=== PATIENT | female | born 1945 | race Caucasian/White ===

== ENCOUNTER 2016-08-26 17:24 | Emergency (ER) | payer MEDICARE, OTHER ==
--- NOTE | 2016-08-26 17:57 | ED Physician Documentation ---
General Adult - HISTORIAN Historian: patient - HPI Stated Complaint: weakness/confusion Chief Complaint: Weakness Timing: still present Severity: mild Further Comments: yes (70yo white female with 1 week history of the gait disturbance, is getting weaker, seems worse over the last month. More pale today. Patient has a history of anemia, is taking some Fe at this time. Has been having more swelling in her legs. Gets some better at noc. No orthopnic symtoms. No chest lima or pressure. Has been having some UTI symptoms.) - ROS CONST: denies: fever, chills EYES/ENT: none CVS/RESP: denies: chest pain, shortness of breath, cough GI/: problems urinating. denies: abdominal pain, vomiting, nausea, diarrhea, black stools - PAST HX Past History: COPD, hypertension, other (hypothyroidism, macular degeneration, ) Other History: other (breast cancer) Surgeries/Procedures: other (appendectomy, mastectomy, cataract extraction) - SOCIAL HX Smoking History: quit greater than 1 year (2 years ago) Alcohol Use: none Drug Use: none - FAMILY HX Family History: No - VITAL SIGNS Vital Signs: Vital Signs Temp Pulse Resp BP Pulse Ox 99.2 F 75 16 156/57 93 08/26/16 17:41 08/26/16 17:41 08/26/16 17:41 08/26/16 17:41 08/26/16 17:41 <Leighton Macdonald - Last Filed: 08/26/16 18:07> - VITAL SIGNS Vital Signs: Vital Signs Temp Pulse Resp BP Pulse Ox 99.2 F 75 16 156/57 93 08/26/16 17:41 08/26/16 17:41 08/26/16 17:41 08/26/16 17:41 08/26/16 17:41 <BREN ÁLVAREZ - Last Filed: 08/26/16 21:19> - PAST HX Allergies/Adverse Reactions: Allergies Allergy/AdvReac Type Severity Reaction Status Date / Time Penicillins Allergy Verified 09/18/13 08:31 Home Medications: Ambulatory Orders Medication Instructions Recorded Aspirin EC [Ecotrin] 81 mg PO QD 09/18/13 Ranitidine HCl [Zantac] 150 mg PO 0700 09/18/13 Citalopram Hydrobromide [Celexa] 40 mg PO QD 08/26/16 Cyclobenzaprine HCl [Flexeril] 5 mg PO TID PRN 08/26/16 Ferrous Sulfate [Feosol] 325 mg PO 08/26/16 Furosemide [Lasix] 40 mg PO DAILY 08/26/16 Gabapentin [Neurontin] 600 mg PO TID 08/26/16 Hydroxyzine HCl [Atarax] 10 mg PO PRN 08/26/16 Levofloxacin [Levaquin] 500 mg PO DAILY #4 tablet 08/26/16 Levothyroxine Sodium [Synthroid] 125 mcg PO QDAY 08/26/16 oxyCODONE HCL/ACETAMINOPHEN 1 PO Q12 08/26/16 [Percocet 5-325 mg Tablet] Progress - Progress Progress: 1930 Offered admission due to confusion. Patient adamantly does not want admission at [facility], patient wants to go home. Patient lives with her daughter, offered to direct admit if patient has difficulty at home. Will give IV levaquin in ER and continue for a total of 5 days. Daughter states patient got very confused when TSH was elevated a few weeks ago. Will send out thyroid panel. Reviewed discharge instructions with daughter, verbalized understanding. <BREN ÁLVAREZ - Last Filed: 08/26/16 21:19> ED Results Lab/Radiology - Lab Results Lab Results: Lab Results 08/26/16 08/26/16 08/26/16 18:40 18:40 18:40 WBC 6.00 K/ul K/ul (4.00-12.00) RBC 3.43 M/ul L M/ul (3.90-5.20) Hgb 10.7 g/dL L g/dL (12.0-16.0) Hct 33.6 % L % (34.5-46.5) MCV 97.7 fl fl (80.0-100.0) MCH 31.1 pg pg (28.0-34.0) MCHC 31.8 g/dL g/dL (30.0-36.0) RDW 14.4 % H % (11.3-14.3) Plt Count 367 K/mm3 K/mm3 (130-400) Neut % (Auto) 56.9 % % (39.0-79.0) Lymph % (Auto) 30.4 % % (16.0-50.0) [place] % (Auto) 5.7 % % (0.0-11.0) Eos % (Auto) 4.5 % % (0.0-6.8) Baso % (Auto) 0.5 (0.0-1.5) Neut # 3.4 # k/uL # k/uL (1.4-7.7) Lymph # 1.8 # k/uL # k/uL (0.6-4.0) [place] # 0.4 # k/uL # k/uL (0.0-0.9) Eos # 0.3 # k/uL # k/uL (0.0-0.6) Baso # 0.0 # k/uL # k/uL (0.0-0.5) Reactive Lymphs % 1.9 % % (0.0-5.0) Reactive Lymphs # 0.1 # k/uL # k/uL (0.0-0.8) Sodium 136 mmol/L mmol/L (136-145) Potassium 4.3 mmol/L mmol/L (3.5-5.0) Chloride 102 mmol/L mmol/L (98-110) Carbon Dioxide 31 mmol/L mmol/L (20-32) BUN 25 mg/dL mg/dL (10-26) Creatinine 1.1 mg/dL mg/dL (0.4-1.5) Estimated Creat Clear 92 Est GFR ( Amer) > 60 (60 - ) Est GFR (Non-Af Amer) > 60 (60 - ) Glucose 111 mg/dL H mg/dL (70-99) Calcium 9.4 mg/dL mg/dL (8.5-10.5) Total Bilirubin 0.2 mg/dL mg/dL (0.2-1.2) AST 17 U/L U/L (0-41) ALT 12 U/L U/L (0-45) Alkaline Phosphatase 76 U/L U/L (46-116) NT-Pro-B Natriuret Pep 409.0 pg/mL H pg/mL (15.0-125.0) Total Protein 7.4 g/dL g/dL (6.0-8.5) Urine Color Urine Appearance Urine pH Ur Specific [place] Urine Protein Urine Ketones Urine Occult Blood Urine Nitrite Urine Bilirubin Urine Urobilinogen Ur Leukocyte Esterase Urine RBC Urine WBC Urine WBC Clumps Amorphous Sediment Urine Bacteria Urine Glucose 08/26/16 18:30 WBC RBC Hgb Hct MCV MCH MCHC RDW Plt Count Neut % (Auto) Lymph % (Auto) [place] % (Auto) Eos % (Auto) Baso % (Auto) Neut # Lymph # [place] # Eos # Baso # Reactive Lymphs % Reactive Lymphs # Sodium Potassium Chloride Carbon Dioxide BUN Creatinine Estimated Creat Clear Est GFR ( Amer) Est GFR (Non-Af Amer) Glucose Calcium Total Bilirubin AST ALT Alkaline Phosphatase NT-Pro-B Natriuret Pep Total Protein Urine Color Yellow (YELLOW) Urine Appearance Slightly cloudy (CLEAR) Urine pH 5.5 (5.0 - 8.0) Ur Specific [place] 1.010 (1.010-1.030) Urine Protein 1+ mg/dL H mg/dL (NEGATIVE) Urine Ketones Negative mg/dL mg/dL (NEGATIVE) Urine Occult Blood 2+ H (NEGATIVE) Urine Nitrite Positive (NEGATIVE) Urine Bilirubin Negative (NEGATIVE) Urine Urobilinogen 0.2 Eu Eu (0.2-1.0) Ur Leukocyte Esterase 2+ H (NEGATIVE) Urine RBC 0-2 (0-2 HPF) Urine WBC 10-25 H (0-5 HPF) Urine WBC Clumps Present H (NEGATIVE) Amorphous Sediment Few H (NEGATIVE) Urine Bacteria Moderate H (NEGATIVE) Urine Glucose Negative mg/dL mg/dL (NEGATIVE) - Orders Orders: ED Orders Category Date Time Status In & Out Cath [Intermittent urinary catheteri] 1T Care 08/26/16 18:[address] Saline Lock/IV Now Care 08/26/16 18:11 Active CHEST 1 VIEW [RAD] Routine Exams 08/26/16 Taken BNP [NT-proBNP] Routine Lab 08/26/16 18:40 Completed CBC/PLATELET/DIFF Routine Lab 08/26/16 18:40 Completed CMP Routine Lab 08/26/16 18:40 Completed THYROID PROFILE Stat Lab 08/26/16 19:15 Received URINALYSIS Routine Lab 08/26/16 18:30 Completed URINE CULTURE Routine Lab 08/26/16 18:30 Received Levofloxacin 500Mg/D5w 100Ml [Levaquin] 100 ml Med 08/26/16 20:16 Discontinued IV .STK-MED Levofloxacin 500Mg/D5w 100Ml [Levaquin] 500 mg Med 08/26/16 19:50 Discontinued Premix Bag [Premix Fluid] 1 bag IV NOW <BREN ÁLVAREZ - Last Filed: 08/26/16 21:19> General Adult Physical Exam - PHYSICAL EXAM GENERAL APPEARANCE: mild distress NECK: normal inspection, supple, lymphadenopathy. No: thyroid normal RESPIRATORY: no resp distress, chest non-tender, breath sounds normal. No: wheezes, rales, rhonchi CVS: reg rate & rhythm, heart sounds normal, equal pulses, no murmur, no gallop ABDOMEN: soft, no organomegaly, normal bowel sounds, no abdominal bruit, no distension. No: rebound, distended, guarding BACK: normal inspection. No: CVA tenderness (R), CVA tenderness (L) SKIN: warm/dry, normal color EXTREMITIES: non-tender, edema NEURO: oriented X3, CN's nml as tested, mood/affect nml, cognition normal <Leighton Macdonald - Last Filed: 08/26/16 18:07> Discharge <Leighton Macdonald - Last Filed: 08/26/16 18:07> Decision to Admit: NO Decision Time: 21:18 <BREN ÁLVAREZ - Last Filed: 08/26/16 21:19> Clincal Impression: Altered mental status Qualifiers: Altered mental status type: disorientation Qualified Code(s): R41.0 - Disorientation, unspecified UTI (urinary tract infection) Qualifiers: Urinary tract infection type: site unspecified Hematuria presence: with hematuria Qualified Code(s): N39.0 - Urinary tract infection, site not specified ; R31.9 - Hematuria, unspecified Prescriptions: Levofloxacin [Levaquin] 500 mg PO DAILY #4 tablet Referrals: Renetta Kent MD [Primary Care Provider] - 2 Days Home Medications: Ambulatory Orders Aspirin EC [Ecotrin] 81 mg PO QD 09/18/13 Ranitidine HCl [Zantac] 150 mg PO 0700 09/18/13 Citalopram Hydrobromide [Celexa] 40 mg PO QD 08/26/16 Cyclobenzaprine HCl [Flexeril] 5 mg PO TID PRN 08/26/16 Ferrous Sulfate [Feosol] 325 mg PO 08/26/16 Furosemide [Lasix] 40 mg PO DAILY 08/26/16 Gabapentin [Neurontin] 600 mg PO TID 08/26/16 Hydroxyzine HCl [Atarax] 10 mg PO PRN 08/26/16 Levofloxacin [Levaquin] 500 mg PO DAILY #4 tablet 08/26/16 Levothyroxine Sodium [Synthroid] 125 mcg PO QDAY 08/26/16 oxyCODONE HCL/ACETAMINOPHEN [Percocet 5-325 mg Tablet] 1 PO Q12 08/26/16 Condition: Stable Disposition: 01 HOME, SELF-CARE
[2016-08-26 18:37] LABS: APPEARANCE,URINE Slightly Cloudy (CLEAR); COLOR,URINE Yellow (YELLOW); OCCULT BLOOD,URINE 2+ (NEGATIVE); PH URINE 5.5 (5.0 - 8.0); UROBILINOGEN URINE 0.2 Eu (0.2-1.0)
[2016-08-26 18:45] LABS: AMORPHOUS SEDIMENT,UR FEW (NEGATIVE)
[2016-08-26 18:47] LABS: BASOPHILS % 0.5 (0.0-1.5); EOSINOPHILS % 4.5 % (0.0-6.8); LYMPHOCYTES # 1.8 # k/uL (0.6-4.0); MEAN CORPUSCULAR HEMOGLOBIN 31.1 pg (28.0-34.0); MONOCYTES # 0.4 # k/uL (0.0-0.9); MONOCYTES % 5.7 % (0.0-11.0); NEUTROPHILS # 3.4 # k/uL (1.4-7.7)
[2016-08-26 19:03] LABS: eGFR (African) > 60; eGFR (Non-African) > 60
[2016-08-26] MEDS ORDERED: LEVOFLOXACIN 500MG/D5W 100ML 500 MG in PREMIX BAG 1 BAG IV ONE (19:50)
[2016-08-26] MEDS ORDERED: LEVOFLOXACIN 500MG/D5W 100ML 100 ML IV ONE (20:16)
[2016-08-26 21:25] VITALS: BP 148/71
--- NOTE | 2016-08-27 06:22 | Diagnostic Imaging Report ---
Report Submission Date: Aug 26, 2016 6:48:56 PM SPRING CRATER Patient ~ Study Name: QIANA MELARA ~ Date: Aug 26, 2016 6:13:17 PM SPRING CRATER ~ Modality Type: CR Gender: F ~ Description: CHEST : 41 ~ Institution: [facility] Physician: SHANNEN MEHTA ~ ~ ~ ~ Chest , 1 view History: PEDAL EDEMA Findings: Examination is limited by patient rotation and large body habitus. The heart is enlarged. There is mild vascular congestion present. Left basal atelectasis/infiltrate also suspected but largely obscured by body habitus. No pneumothorax present. Impression: 1. Cardiomegaly vascular congestion and probable left basilar atelectasis/ infiltrate ~ Electronically signed on Aug 26, 2016 6:48:56 PM SPRING CRATER by: Chris YEPEZ
[2016-08-27 20:06] LABS: T3-UPTAKE 31.1 % (25.4-41.2)
== END 2016-08-26 21:22 | disposition home or self-care (01) ==
LOC: ED 17:24
DX: R41.0 Disorientation, unspecified (principal); N39.0 Urinary tract infection, site not specified; R31.9 Hematuria, unspecified
CPT/HCPCS: 71010; 80053; 81002; 83880; 84436; 84479; 85025; 87088; 96365; 99283; J1956; S1016

== ENCOUNTER 2016-09-24 12:03 | Outpatient (CLI) | payer MEDICARE, OTHER | END 2016-09-24 12:04 | LOC: LAB 12:03 | PROVIDERS: ATTEND Family Medicine | DX: E03.9 Hypothyroidism, unspecified (principal) | CPT/HCPCS: 36415; 84443 ==

== ENCOUNTER 2016-11-30 09:38 | Emergency (ER) | payer MEDICARE, OTHER ==
[2016-11-30 10:02] LABS: BASOPHILS % 0.4 (0.0-1.5); EOSINOPHILS % 1.9 % (0.0-6.8); MEAN CORPUSCULAR HEMOGLOBIN 31.2 pg (28.0-34.0); MEAN CORPUSCULAR VOLUME 101.1 fl (80.0-100.0); NEUTROPHILS # 7.9 # k/uL (1.4-7.7)
[2016-11-30 10:41] LABS: eGFR (African) > 60; eGFR (Non-African) > 60
[2016-11-30] MEDS ORDERED: ALBUTEROL SULFATE 2.5 MG/3 ML AMPUL.NEB NEB ONE (10:46)
[2016-11-30] MEDS ORDERED: LORazepam 2 MG/ML VIAL IVP ONE (10:47)
[2016-11-30] MEDS ORDERED: SODIUM CHLORIDE 3 ML VIAL.NEB IH ONE (10:48)
[2016-11-30] MEDS ORDERED: LORazepam 2 MG/ML VIAL ONE (10:49)
--- NOTE | 2016-11-30 10:54 | Diagnostic Imaging Report ---
[facility] [address] [facility].[address] [address] Report Submission Date: Nov 30, 2016 10:36:10 AM CDT Patient Study Name: QIANA MELARA Date: Nov 30, 2016 10:15:14 AM CDT Modality Type: CR Gender: F Description: CHEST : 41 Institution: [facility] Physician: VELMA DYER - AMARJIT Chest AP portable at 1015 hours of November 30, 2016 Clinical history: Dyspnea, pedal edema Comparison to the previous study of August 26, 2016 . There is cardiomegaly with atherosclerosis of the thoracic aorta. Pulmonary venous congestion, elevated left hemidiaphragm with loss of volume in the left hemithorax remain unchanged since August 26, 2016, underlying COPD. Impression: Cardiomegaly with atherosclerosis of the thoracic aorta Elevated left hemidiaphragm , loss of volume in the left hemithorax with pulmonary venous congestion and COPD . No significant change since August 26, 2016 CT scan of the chest with IV contrast is recommended , if not already done. Electronically signed on Nov 30, 2016 10:36:10 AM CDT by: Leighton YEPEZ
--- NOTE | 2016-11-30 12:23 | Diagnostic Imaging Report ---
[facility] [address] [address] Report Submission Date: Nov 30, 2016 12:19:11 PM CDT Patient Study Name: QIANA MELARA Date: Nov 30, 2016 11:38:36 AM CDT Modality Type: CT\SR Gender: F Description: CT CHEST W/ CONTRAST : 43 Institution: [facility] Physician: VELMA DYER - AMARJIT CT chest with IV contrast Clinical history: Dyspnea and pedal edema 80 mL omnipaque 350 Radiation dose DLP 601 6 cm hiatal hernia. No mediastinal hematoma. Subsegmental atelectasis in the left lung base without significant pleural effusion. Mild cardiomegaly. No mass lesion. Mediastinal lipomatosis. No collapsed lobe. Thoracic spondylosis. Slightly elevated left hemidiaphragm. Impression: Subsegmental chronic atelectasis in the left lower lung with elevated left hemidiaphragm without effusion or acute infiltrates 6 cm hiatal hernia with lumbar spondylosis No mass lesions No significant pulmonary venous congestion Electronically signed on Nov 30, 2016 12:19:11 PM CDT by: Leighton YEPEZ
--- NOTE | 2016-11-30 13:02 | ED Physician Documentation ---
Dyspnea - HISTORIAN Historian: patient, child - HPI Stated Complaint: Shortness of Breath Chief Complaint: General Adult Additional Information: head cold sore throat cough occ prod mucoid fever inc sob inc weakness--recennt exposure to similar condition in another person Onset: days ago (7) Duration: worse Initiating Event: upper respiratory illness, other (prev similar) Severity: moderate Exacerbated By: exertion, coughing Associated Symptoms: chills, fever, sweating, chest discomfort, productive cough - ROS CONST: no problems EYES/ENT: none GI/: none NEURO/PSYCH: denies: headache MS/SKIN/LYMPH: none - PAST HX Lung Disease: asthma (djd), COPD PE Risk Factors: hypertension, other (adv djd wears nerve bone pain stimulator) Surgeries/Procedures: other (thryoidectomy accessory epiglotis) Allergies/Adverse Reactions: Allergies Allergy/AdvReac Type Severity Reaction Status Date / Time Penicillins Allergy Verified 09/18/13 08:31 Home Medications: Ambulatory Orders Medication Instructions Recorded Aspirin EC [Ecotrin] 81 mg PO QD 09/18/13 Ranitidine HCl [Zantac] 150 mg PO 0700 09/18/13 Citalopram Hydrobromide [Celexa] 40 mg PO QD 08/26/16 Ferrous Sulfate [Feosol] 325 mg PO DAILY 08/26/16 Furosemide [Lasix] 40 mg PO DAILY 08/26/16 Gabapentin [Neurontin] 600 mg PO TID 08/26/16 Hydroxyzine HCl [Atarax] 10 mg PO PRN PRN 08/26/16 oxyCODONE HCL/ACETAMINOPHEN 1 tab PO BID PRN 08/26/16 [Percocet 5-325 mg Tablet] Arformoterol Tartrate [Brovana] 15 mcg IH BID 11/30/16 Budesonide [Pulmicort] 0.25 mg IH BID 11/30/16 Levofloxacin [Levaquin] 500 mg PO BID #20 tablet 11/30/16 Levothyroxine Sodium [Unithroid] 137 mcg PO DAILY 11/30/16 Methocarbamol [Robaxin] 500 mg PO TID PRN 11/30/16 Prednisone [Deltasone] 5 mg PO BID 11/30/16 - SOCIAL HX Smoking History: non-smoker Alcohol Use: none Drug Use: none - FAMILY HX Family History: no significant history - VITAL SIGNS Vital Signs: Vital Signs Temp Pulse Resp BP Pulse Ox 99.8 F H 74 26 H 157/76 98 11/30/16 09:40 11/30/16 12:00 11/30/16 09:40 11/30/16 09:40 11/30/16 12:00 - REVIEWED ASSESSMENTS Nursing Assessment Reviewed: Yes Vitals Reviewed: Yes ED Results Lab/Radiology - Lab Results Lab Results: Lab Results 11/30/16 11/30/16 11/30/16 09:55 09:55 09:55 WBC RBC Hgb Hct MCV MCH MCHC RDW Plt Count Neut % (Auto) Lymph % (Auto) [place] % (Auto) Eos % (Auto) Baso % (Auto) Neut # Lymph # [place] # Eos # Baso # Reactive Lymphs % Reactive Lymphs # PT 10.2 Seconds Seconds (9.7-11.5) INR 1.0 (0.9-1.1) Sodium 139 mmol/L mmol/L (136-145) Potassium 4.3 mmol/L mmol/L (3.5-5.0) Chloride 100 mmol/L mmol/L (98-110) Carbon Dioxide 29 mmol/L mmol/L (20-32) BUN 25 mg/dL mg/dL (10-26) Creatinine 0.9 mg/dL mg/dL (0.4-1.5) Estimated Creat Clear 164 Est GFR ( Amer) > 60 (60 - ) Est GFR (Non-Af Amer) > 60 (60 - ) Glucose 96 mg/dL mg/dL (70-99) Calcium 9.3 mg/dL mg/dL (8.5-10.5) Total Bilirubin 0.3 mg/dL mg/dL (0.2-1.2) AST 16 U/L U/L (0-41) ALT 14 U/L U/L (0-45) Alkaline Phosphatase 72 U/L U/L (46-116) Creatine Kinase 46 U/L U/L (0-225) Troponin I < 0.03 ng/mL L ng/mL (0.03-0.06) Total Protein 6.9 g/dL g/dL (6.0-8.5) Albumin 4.1 g/dL g/dL (3.0-5.5) 11/30/16 09:55 WBC 9.50 K/ul K/ul (4.00-12.00) RBC 3.68 M/ul L M/ul (3.90-5.20) Hgb 11.5 g/dL L g/dL (12.0-16.0) Hct 37.2 % % (34.5-46.5) MCV 101.1 fl H fl (80.0-100.0) MCH 31.2 pg pg (28.0-34.0) MCHC 30.8 g/dL g/dL (30.0-36.0) RDW 14.0 % % (11.3-14.3) Plt Count 301 K/mm3 K/mm3 (130-400) Neut % (Auto) 83.5 % H % (39.0-79.0) Lymph % (Auto) 10.2 % L % (16.0-50.0) [place] % (Auto) 3.0 % % (0.0-11.0) Eos % (Auto) 1.9 % % (0.0-6.8) Baso % (Auto) 0.4 (0.0-1.5) Neut # 7.9 # k/uL H # k/uL (1.4-7.7) Lymph # 1.0 # k/uL # k/uL (0.6-4.0) [place] # 0.3 # k/uL # k/uL (0.0-0.9) Eos # 0.2 # k/uL # k/uL (0.0-0.6) Baso # 0.0 # k/uL # k/uL (0.0-0.5) Reactive Lymphs % 1.0 % % (0.0-5.0) Reactive Lymphs # 0.1 # k/uL # k/uL (0.0-0.8) PT INR Sodium Potassium Chloride Carbon Dioxide BUN Creatinine Estimated Creat Clear Est GFR ( Amer) Est GFR (Non-Af Amer) Glucose Calcium Total Bilirubin AST ALT Alkaline Phosphatase Creatine Kinase Troponin I Total Protein Albumin - Orders Orders: ED Orders Category Date Time Status Arterial Blood Gas 1T Care 11/30/16 10:23 Active Continuous EKG monitoring Q30M Care 11/30/16 09:52 Active Continuous Pulse Oximetry Q30M Care 11/30/16 09:[address] Saline Lock/IV NOW Care 11/30/16 09:52 Active CHEST 1 VIEW [RAD] Stat Exams 11/30/16 09:[address] CHEST W/ CONTRAST Stat Exams 11/30/16 11:25 Completed CBC/PLATELET/DIFF Routine Lab 11/30/16 09:55 Completed CMP Routine Lab 11/30/16 09:55 Completed CREATINE KINASE Routine Lab 11/30/16 09:55 Completed GRP A STREP SCREEN Stat Lab 11/30/16 Ordered PT-INR Routine Lab 11/30/16 09:55 Completed TROPONIN I (cTnI) Stat Lab 11/30/16 09:55 Completed Albuterol Sulfate [Ventolin] Med 11/30/16 10:46 Discontinued 2.5 mg NEB NOW ONE LORazepam [Ativan] Med 11/30/16 10:47 Discontinued 1 mg IVP NOW ONE LORazepam [Ativan] Med 11/30/16 10:49 Discontinued 2 mg .ROUTE .STK-MED ONE Sodium Chloride For Inhalation [Dey] Med 11/30/16 10:48 Discontinued 3 ml IH .STK-MED ONE Oxygen Daily Oxygen 11/30/16 10:00 Ordered EKG WITH COMPARISON Stat Ther 11/30/16 09:52 Ordered Dyspnea Physical Exam - EXAM General Appearance: moderate distress EENT: eye inspection normal Neck: nml inspection. No: lymphadenopathy Respiratory: no resp. distress, dull on percussion, decreased air movement (maryellen lt side) CVS: reg. rate & rhythm Abdomen: non-tender Skin: color nml. No: no rash, cyanosis, diaphoresis, pallor, ecchymosis Extremities: non-tender, normal range of motion, no evidence of injury, no edema Neuro/Psych: oriented x3, mood/affect nml Discharge Clincal Impression: copd atelectasis chronic pain Prescriptions: Levofloxacin [Levaquin] 500 mg PO BID #20 tablet Home Medications: Ambulatory Orders Aspirin EC [Ecotrin] 81 mg PO QD 09/18/13 Ranitidine HCl [Zantac] 150 mg PO 0700 09/18/13 Citalopram Hydrobromide [Celexa] 40 mg PO QD 08/26/16 Ferrous Sulfate [Feosol] 325 mg PO DAILY 08/26/16 Furosemide [Lasix] 40 mg PO DAILY 08/26/16 Gabapentin [Neurontin] 600 mg PO TID 08/26/16 Hydroxyzine HCl [Atarax] 10 mg PO PRN PRN 08/26/16 oxyCODONE HCL/ACETAMINOPHEN [Percocet 5-325 mg Tablet] 1 tab PO BID PRN Arformoterol Tartrate [Brovana] 15 mcg IH BID 11/30/16 Budesonide [Pulmicort] 0.25 mg IH BID 11/30/16 Levofloxacin [Levaquin] 500 mg PO BID #20 tablet 11/30/16 Levothyroxine Sodium [Unithroid] 137 mcg PO DAILY 11/30/16 Methocarbamol [Robaxin] 500 mg PO TID PRN 11/30/16 Prednisone [Deltasone] 5 mg PO BID 11/30/16 Comments: [facility]--pt family elected go home Condition: Good Disposition: 01 HOME, SELF-CARE Decision to Admit: NO Decision Time: 13:09
[2016-11-30 14:37] VITALS: BP 130/62
[2016-12-01 05:49] LABS: ABG BASE EXCESS 6.3 (-2 - +2); ABG PH 7.47 (7.35-7.45)
== END 2016-11-30 13:20 | disposition home or self-care (01) ==
LOC: ED 09:38
DX: J44.1 Chronic obstructive pulmonary disease with (acute) exacerbation (principal); G89.4 Chronic pain syndrome
CPT/HCPCS: 36600; 71010; 71260; 80053; 82550; 82803; 84484; 85025; 85610; 87070; 87880; 96374; 99284; J2060; Q9966; S1016

== ENCOUNTER 2016-12-03 19:06 | Emergency (ER) | payer MEDICARE, OTHER ==
[2016-12-03] MEDS ORDERED: oxyCODONE HCL 10 MG TAB.ER.12H PO ONE (19:54)
[2016-12-03] MEDS ORDERED: oxyCODONE HCL 10 MG TAB.ER.12H PO SCH (21:00)
--- NOTE | 2016-12-03 21:21 | ED Physician Documentation ---
General Adult - HISTORIAN Historian: patient - HPI Stated Complaint: Pain to Rt hip after fall at bedside Chief Complaint: General Adult Onset: hours Timing: still present Severity: moderate Further Comments: yes (Pt is a 71 yo female who fell from standing by her bedside earlier today and has pain in her R hip. Pt does have chronic hip pain and DJD. No roation or foreshortening. Pain worse with trying to stand.) - ROS CONST: no problems EYES/ENT: none CVS/RESP: none GI/: none MS/SKIN/LYMPH: other (R hip pain) - PAST HX Past History: other (COPD, HTN, Hypothyroidism, macular degeneration) Surgeries/Procedures: other (appendectomy, mastectomy, catarac) Allergies/Adverse Reactions: Allergies Allergy/AdvReac Type Severity Reaction Status Date / Time Penicillins Allergy Verified 12/03/16 19:36 diphenhydramine HCl AdvReac Weakness Verified 12/03/16 19:36 [From Benadryl] Home Medications: Ambulatory Orders Medication Instructions Recorded Aspirin EC [Ecotrin] 81 mg PO QD 09/18/13 Ranitidine HCl [Zantac] 150 mg PO 0700 09/18/13 Citalopram Hydrobromide [Celexa] 40 mg PO QD 08/26/16 Ferrous Sulfate [Feosol] 325 mg PO DAILY 08/26/16 Furosemide [Lasix] 40 mg PO DAILY 08/26/16 Gabapentin [Neurontin] 600 mg PO TID 08/26/16 Hydroxyzine HCl [Atarax] 10 mg PO PRN PRN 08/26/16 oxyCODONE HCL/ACETAMINOPHEN 1 tab PO BID PRN 08/26/16 [Percocet 5-325 mg Tablet] Arformoterol Tartrate [Brovana] 15 mcg IH BID 11/30/16 Budesonide [Pulmicort] 0.25 mg IH BID 11/30/16 Levofloxacin [Levaquin] 500 mg PO BID #20 tablet 11/30/16 Levothyroxine Sodium [Unithroid] 137 mcg PO DAILY 11/30/16 Methocarbamol [Robaxin] 500 mg PO TID PRN 11/30/16 Prednisone [Deltasone] 5 mg PO BID 11/30/16 - SOCIAL HX Smoking History: quit greater than 1 year - FAMILY HX Family History: No - VITAL SIGNS Vital Signs: Vital Signs Temp Pulse Resp BP Pulse Ox 98.3 F 85 24 189/84 94 12/03/16 19:07 12/03/16 19:07 12/03/16 19:07 12/03/16 19:07 12/03/16 19:07 - REVIEWED ASSESSMENTS Nursing Assessment Reviewed: Yes Vitals Reviewed: Yes Progress - Progress Progress: oxycodone 10 mg er in ER (pts home med dose while in ER) CT pelvis: 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 Lumbar spondylosis with spinal stenosis at L3-4. Pt requests catheter to avoid having to get up to bathroom tonight. Continue usual meds. ED Results Lab/Radiology - Orders Orders: ED Orders Category Date Time Status Phillips [Urinary catheterization] 1T Care 12/03/16 21:[address] W/O [CT PELVIS W/O CONTRAST] Stat Exams 12/03/16 Taken RT HIP 2VIEW COMPLETE [RAD] Stat Exams 12/03/16 Taken oxyCODONE HCL [Oxycontin] Med 12/03/16 21:00 Ordered 10 mg PO Q12 General Adult Physical Exam - PHYSICAL EXAM GENERAL APPEARANCE: mild distress NECK: normal inspection, supple RESPIRATORY: no resp distress, chest non-tender, breath sounds normal CVS: reg rate & rhythm, heart sounds normal SKIN: other (ecchymosis L shoulder & wrist) EXTREMITIES: other (R hip tenderness, no rotation or forshortening, inhibited ROM) NEURO: oriented X3, motor nml, sensation nml Discharge Clincal Impression: fall, R hip pain Referrals: Leighton Macdonald MD [Primary Care Provider] - Home Medications: Ambulatory Orders Aspirin EC [Ecotrin] 81 mg PO QD 09/18/13 Ranitidine HCl [Zantac] 150 mg PO 0700 09/18/13 Citalopram Hydrobromide [Celexa] 40 mg PO QD 08/26/16 Ferrous Sulfate [Feosol] 325 mg PO DAILY 08/26/16 Furosemide [Lasix] 40 mg PO DAILY 08/26/16 Gabapentin [Neurontin] 600 mg PO TID 08/26/16 Hydroxyzine HCl [Atarax] 10 mg PO PRN PRN 08/26/16 oxyCODONE HCL/ACETAMINOPHEN [Percocet 5-325 mg Tablet] 1 tab PO BID PRN Arformoterol Tartrate [Brovana] 15 mcg IH BID 11/30/16 Budesonide [Pulmicort] 0.25 mg IH BID 11/30/16 Levofloxacin [Levaquin] 500 mg PO BID #20 tablet 11/30/16 Levothyroxine Sodium [Unithroid] 137 mcg PO DAILY 11/30/16 Methocarbamol [Robaxin] 500 mg PO TID PRN 11/30/16 Prednisone [Deltasone] 5 mg PO BID 11/30/16 Condition: Stable Disposition: 01 HOME, SELF-CARE Decision to Admit: NO Decision Time: 21:10
[2016-12-03 22:19] VITALS: BP 144/62
--- NOTE | 2016-12-03 23:32 | Diagnostic Imaging Report ---
JACKIE ALVARADO [facility] [address] [facility] [address] [place] [address]. [id number] Report Submission Date: December 03, 2016 8:24:35 PM CDT Patient Study Name: QIANA MELARA Date: December 03, 2016 8:06:07 PM CDT Modality Type: CR Gender: F Description: PELVIS : 41 Institution: [facility] Physician: JACKIE ALVARADO Right hip -two views CLINICAL HISTORY: Fall today. Pain. FINDINGS: Examination right hip in AP and frog-leg lateral views demonstrates acetabuli protrusio. There is marked narrowing of the joint space with loss of the joint space superiorly. There are prominent osteophytes on the femoral head and acetabulum. There is no evident fracture and no lytic or blastic lesion. IMPRESSION: Degenerative changes and acetabuli protrusio. No fracture. Electronically signed on December 03, 2016 8:24:35 PM CDT by: Martin YEPEZ
--- NOTE | 2016-12-03 23:32 | Diagnostic Imaging Report ---
JACKIE ALVARADO [facility] [address] [facility] [address] [place], [place]. [address] Report Submission Date: December 03, 2016 8:23:30 PM CDT Patient Study Name: QIANA MELARA Date: December 03, 2016 7:56:33 PM CDT Modality Type: CT\SR Gender: F Description: CT PELVIS W/O CONTRAST : 43 Institution: [facility] Physician: JACKIE ALVARADO CT of the pelvis without contrast CLINICAL HISTORY: Fall today. Right hip pain. Rule out fracture. TECHNIQUE: CT of the pelvis is performed in contiguous axial slices with sagittal and coronal reconstructions. FINDINGS: Degenerative changes are seen in the visualized lower lumbar vertebrae. Sacroiliac joints are symmetric. There are severe degenerative changes in the right hip joint with remodeling of the acetabulum and the femoral head and resulting acetabuli protrusio. There are prominent osteophytes. There is no evident fracture. Bilateral inguinal hernias are incidentally noted containing only fat. Vascular calcification is demonstrated. There is narrowing of the spinal canal at L3-4. IMPRESSION: 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 Lumbar spondylosis with spinal stenosis at L3-4. Electronically signed on December 03, 2016 8:23:30 PM CDT by: Martin YEPEZ
== END 2016-12-03 21:10 | disposition home or self-care (01) ==
LOC: ED 19:06
DX: S79.911A Unspecified injury of right hip, initial encounter (principal); W19.XXXA Unspecified fall, initial encounter; Y93.9 Activity, unspecified; Y99.9 Unspecified external cause status
CPT/HCPCS: 51702; 72192; 73502; 99283

== ENCOUNTER 2017-01-14 10:03 | Outpatient (CLI) | payer MEDICARE, OTHER ==
[2017-01-14 10:21] LABS: BASOPHILS % 0.8 (0.0-1.5); EOSINOPHILS % 4.3 % (0.0-6.8); MEAN CORPUSCULAR HEMOGLOBIN 32.6 pg (28.0-34.0); MEAN CORPUSCULAR VOLUME 103.5 fl (80.0-100.0); MONOCYTES % 4.1 % (0.0-11.0); NEUTROPHILS # 5.7 # k/uL (1.4-7.7)
[2017-01-14 10:55] LABS: eGFR (African) > 60; eGFR (Non-African) > 60
== END 2017-01-14 10:04 ==
LOC: LAB 10:03
PROVIDERS: ATTEND Family Medicine
DX: R53.82 Chronic fatigue, unspecified (principal); E03.9 Hypothyroidism, unspecified
CPT/HCPCS: 80053; 84443; 85025

== ENCOUNTER 2017-03-20 16:52 | Inpatient (IN) | payer MEDICARE, OTHER ==
[2017-03-20 17:50] LABS: BASOPHILS % 0.9 (0.0-1.5); EOSINOPHILS % 4.7 % (0.0-6.8); MEAN CORPUSCULAR HEMOGLOBIN 32.7 pg (28.0-34.0); MEAN CORPUSCULAR VOLUME 102.2 fl (80.0-100.0); MONOCYTES % 3.5 % (0.0-11.0); NEUTROPHILS # 4.9 # k/uL (1.4-7.7)
[2017-03-20 17:55] LABS: APPEARANCE,URINE Clear (CLEAR); COLOR,URINE Yellow (YELLOW); OCCULT BLOOD,URINE Trace-intact (NEGATIVE); PH URINE 5.5 (5.0 - 8.0); UROBILINOGEN URINE 0.2 Eu (0.2-1.0)
--- NOTE | 2017-03-20 17:59 | ED Physician Documentation ---
General Adult - HISTORIAN Historian: patient, child (daughter, granddaughter (?)) - HPI Stated Complaint: Edema to Legs Chief Complaint: General Adult Additional Information: Legs more swollen for a week. Face was also swollen so lasix increased from 40 mg daily to 40 mg am and an additional 20 mg in the evening. She has been sleeping more. More agitated and confused per daughter. Daughter says she has been sneaking potato chips. Her sister a week ago and she thinks everything has been worse for her since. Thinks she becomes SOB more often; puts on her CPAP and this helps. Does not use oxygen at home otherwise. Onset: other (a week or more) - ROS CONST: denies: fever - PAST HX Past History: COPD, CHF - SOCIAL HX Smoking History: quit greater than 1 year (3 years), cigarettes - FAMILY HX Family History: No - VITAL SIGNS Vital Signs: Vital Signs Temp Pulse Resp BP Pulse Ox 82 24 148/75 93 03/20/17 16:55 03/20/17 16:55 03/20/17 16:55 03/20/17 16:55 - REVIEWED ASSESSMENTS Nursing Assessment Reviewed: Yes Vitals Reviewed: Yes <DIANA VALERIO - Last Filed: 03/20/17 17:59> - VITAL SIGNS Vital Signs: Vital Signs Temp Pulse Resp BP Pulse Ox 97.4 F L 81 16 151/69 99 03/20/17 20:56 03/20/17 20:56 03/20/17 20:56 03/20/17 20:56 03/20/17 20:56 <Leighton Macdonald - Last Filed: 03/20/17 21:02> - PAST HX Allergies/Adverse Reactions: Allergies Allergy/AdvReac Type Severity Reaction Status Date / Time Penicillins Allergy Verified 03/20/17 17:04 diphenhydramine HCl AdvReac Weakness Verified 03/20/17 17:04 [From Benadryl] Home Medications: Ambulatory Orders Medication Instructions Recorded Aspirin EC [Ecotrin] 81 mg PO QD 09/18/13 Ranitidine HCl [Zantac] 150 mg PO 0700 09/18/13 Ferrous Sulfate [Feosol] 325 mg PO DAILY 08/26/16 Furosemide [Lasix] 40 mg PO DAILY 08/26/16 Gabapentin [Neurontin] 600 mg PO TID 08/26/16 Methocarbamol [Robaxin] 500 mg PO TID PRN 11/30/16 ED Results Lab/Radiology - Lab Results Lab Results: Lab Results 03/20/17 17:30 WBC 7.30 K/ul K/ul (4.00-12.00) RBC 3.33 M/ul L M/ul (3.90-5.20) Hgb 10.9 g/dL L g/dL (12.0-16.0) Hct 34.0 % L % (34.5-46.5) MCV 102.2 fl H fl (80.0-100.0) MCH 32.7 pg pg (28.0-34.0) MCHC 32.0 g/dL g/dL (30.0-36.0) RDW 15.3 % H % (11.3-14.3) Plt Count 407 K/mm3 H K/mm3 (130-400) Neut % (Auto) 67.7 % % (39.0-79.0) Lymph % (Auto) 21.7 % % (16.0-50.0) Blount % (Auto) 3.5 % % (0.0-11.0) Eos % (Auto) 4.7 % % (0.0-6.8) Baso % (Auto) 0.9 (0.0-1.5) Neut # (Auto) 4.9 # k/uL # k/uL (1.4-7.7) Lymph # (Auto) 1.6 # k/uL # k/uL (0.6-4.0) Blount # (Auto) 0.2 # k/uL # k/uL (0.0-0.9) Eos # (Auto) 0.3 # k/uL # k/uL (0.0-0.6) Baso # (Auto) 0.1 # k/uL # k/uL (0.0-0.5) Reactive Lymphs % 1.6 % % (0.0-5.0) Reactive Lymphs # 0.1 # k/uL # k/uL (0.0-0.8) - Orders Orders: ED Orders Category Date Time Status Place IV Lock 1T Care 03/20/17 17:04 Active BNP [NT-proBNP] Stat Lab 03/20/17 17:30 Received CBC/PLATELET/DIFF Routine Lab 03/20/17 17:30 Completed CMP Routine Lab 03/20/17 17:30 Received URINALYSIS Routine Lab 03/20/17 17:30 Received <DIANA VALERIO - Last Filed: 03/20/17 17:59> - Lab Results Lab Results: Lab Results 03/20/17 03/20/17 03/20/17 17:30 17:30 17:30 WBC RBC Hgb Hct MCV MCH MCHC RDW Plt Count Neut % (Auto) Lymph % (Auto) Blount % (Auto) Eos % (Auto) Baso % (Auto) Neut # (Auto) Lymph # (Auto) Blount # (Auto) Eos # (Auto) Baso # (Auto) Reactive Lymphs % Reactive Lymphs # Sodium 139 mmol/L mmol/L (136-145) Potassium 4.9 mmol/L mmol/L (3.5-5.0) Chloride 102 mmol/L mmol/L (98-110) Carbon Dioxide 30 mmol/L mmol/L (20-32) BUN 11 mg/dL mg/dL (10-26) Creatinine 1.1 mg/dL mg/dL (0.4-1.5) Estimated Creat Clear 96 Est GFR ( Amer) > 60 (60 - ) Est GFR (Non-Af Amer) > 60 (60 - ) Glucose 125 mg/dL H mg/dL (70-99) Calcium 9.0 mg/dL mg/dL (8.5-10.5) Total Bilirubin 0.2 mg/dL mg/dL (0.2-1.2) AST 42 U/L H U/L (0-41) ALT 23 U/L U/L (0-45) Alkaline Phosphatase 69 U/L U/L (46-116) NT-Pro-B Natriuret Pep 1058.9 pg/mL H pg/mL (15.0-125.0) Total Protein 6.5 g/dL g/dL (6.0-8.5) Albumin 3.9 g/dL g/dL (3.0-5.5) Urine Color Yellow (YELLOW) Urine Appearance Clear (CLEAR) Urine pH 5.5 (5.0 - 8.0) Ur Specific [place] 1.025 (1.010-1.030) Urine Protein 2+ mg/dL H mg/dL (NEGATIVE) Urine Ketones Negative mg/dL mg/dL (NEGATIVE) Urine Occult Blood Trace-intact (NEGATIVE) Urine Nitrite Negative (NEGATIVE) Urine Bilirubin 1+ H (NEGATIVE) Urine Urobilinogen 0.2 Eu Eu (0.2-1.0) Ur Leukocyte Esterase Negative (NEGATIVE) Urine RBC 2-5 H (0-2 HPF) Urine WBC 2-5 (0-5 HPF) Ur Squamous Epith Cells Few (NEG-FEW) Calcium Oxalate Crystal Few H (NEGATIVE) Amorphous Sediment Few H (NEGATIVE) Urine Bacteria Few H (NEGATIVE) Urine Mucus Present H (NEGATIVE) Urine Glucose Negative mg/dL mg/dL (NEGATIVE) 03/20/17 17:30 WBC 7.30 K/ul K/ul (4.00-12.00) RBC 3.33 M/ul L M/ul (3.90-5.20) Hgb 10.9 g/dL L g/dL (12.0-16.0) Hct 34.0 % L % (34.5-46.5) MCV 102.2 fl H fl (80.0-100.0) MCH 32.7 pg pg (28.0-34.0) MCHC 32.0 g/dL g/dL (30.0-36.0) RDW 15.3 % H % (11.3-14.3) Plt Count 407 K/mm3 H K/mm3 (130-400) Neut % (Auto) 67.7 % % (39.0-79.0) Lymph % (Auto) 21.7 % % (16.0-50.0) Blount % (Auto) 3.5 % % (0.0-11.0) Eos % (Auto) 4.7 % % (0.0-6.8) Baso % (Auto) 0.9 (0.0-1.5) Neut # (Auto) 4.9 # k/uL # k/uL (1.4-7.7) Lymph # (Auto) 1.6 # k/uL # k/uL (0.6-4.0) Blount # (Auto) 0.2 # k/uL # k/uL (0.0-0.9) Eos # (Auto) 0.3 # k/uL # k/uL (0.0-0.6) Baso # (Auto) 0.1 # k/uL # k/uL (0.0-0.5) Reactive Lymphs % 1.6 % % (0.0-5.0) Reactive Lymphs # 0.1 # k/uL # k/uL (0.0-0.8) Sodium Potassium Chloride Carbon Dioxide BUN Creatinine Estimated Creat Clear Est GFR ( Amer) Est GFR (Non-Af Amer) Glucose Calcium Total Bilirubin AST ALT Alkaline Phosphatase NT-Pro-B Natriuret Pep Total Protein Albumin Urine Color Urine Appearance Urine pH Ur Specific [place] Urine Protein Urine Ketones Urine Occult Blood Urine Nitrite Urine Bilirubin Urine Urobilinogen Ur Leukocyte Esterase Urine RBC Urine WBC Ur Squamous Epith Cells Calcium Oxalate Crystal Amorphous Sediment Urine Bacteria Urine Mucus Urine Glucose - Orders Orders: ED Orders Category Date Time Status Place IV Lock 1T Care 03/20/17 17:04 Active CHEST 1 VIEW [RAD] Stat Exams 03/20/17 Completed BNP [NT-proBNP] Stat Lab 03/20/17 17:30 Completed CBC/PLATELET/DIFF Routine Lab 03/20/17 17:30 Completed CMP Routine Lab 03/20/17 17:30 Completed URINALYSIS Routine Lab 03/20/17 17:30 Completed <Leighton Macdonald - Last Filed: 03/20/17 21:02> General Adult Physical Exam - PHYSICAL EXAM GENERAL APPEARANCE: no distress EENT: eye inspection normal, pharynx normal (Mallampati 1), other (dry mouth) NECK: normal inspection RESPIRATORY: no resp distress (on 3 L oxygen per NC, 96%) CVS: reg rate & rhythm, heart sounds normal ABDOMEN: soft, normal bowel sounds RECTAL: deferred BACK: normal inspection, no CVA tenderness, other (no vertebral tenderness) EXTREMITIES: no evidence of injury, edema (1+) NEURO: CN's nml as tested, motor nml, sensation nml <DIANA VALERIO - Last Filed: 03/20/17 17:59> - PHYSICAL EXAM RESPIRATORY: rales (in bases) CVS: no murmur EXTREMITIES: edema NEURO: oriented X3, cognition normal <Leighton Macdonald - Last Filed: 03/20/17 21:02> Discharge <DIANA VALERIO - Last Filed: 03/20/17 17:59> Decision to Admit: [id number] Date of Decison to Admit: 03/20/17 Decision Time: 21:01 <Leighton Macdonald - Last Filed: 03/20/17 21:02> Clincal Impression: CHF (congestive heart failure) Home Medications: Ambulatory Orders Aspirin EC [Ecotrin] 81 mg PO QD 09/18/13 Ranitidine HCl [Zantac] 150 mg PO 0700 09/18/13 Ferrous Sulfate [Feosol] 325 mg PO DAILY 08/26/16 Furosemide [Lasix] 40 mg PO DAILY 08/26/16 Gabapentin [Neurontin] 600 mg PO TID 08/26/16 Methocarbamol [Robaxin] 500 mg PO TID PRN 11/30/16 Condition: Stable Disposition: 01 HOME, SELF-CARE
[2017-03-20 18:01] LABS: AMORPHOUS SEDIMENT,UR FEW (NEGATIVE)
[2017-03-20 18:04] LABS: eGFR (African) > 60; eGFR (Non-African) > 60
--- NOTE | 2017-03-20 19:12 | Diagnostic Imaging Report ---
DIANA VALERIO~ [facility] [address] [facility] [address] [address] ~ ~ ~ ~ Report Submission Date: Mar 20, 2017 6:45:16 PM CDT Patient ~ Study Name: QIANA MELARA ~ Date: Mar 20, 2017 6:01:34 PM CDT ~ Modality Type: CR Gender: F ~ Description: CHEST : 41 ~ Institution: [facility] Physician: DIANA VALERIO ~ ~ ~ ~ Examination: Portable chest History: Chest discomfort Findings: Single view of the chest demonstrates large consolidation involving the left mid to lower lung field. Obscuration of the cardiac silhouette. Right hemithorax without overt blunting. Osseous structures appropriate for age. Impression: Large left hemithorax consolidation/effusion. ~ Electronically signed on Mar 20, 2017 6:45:16 PM CDT by: Ramo YEPEZ
[2017-03-20] MEDS ORDERED: ALBUTEROL 90MCG/PUFF INHALER IH PRN (19:54)
[2017-03-20] MEDS ORDERED: FUROSEMIDE 40 MG/4 ML VIAL IVP ONE (19:57)
[2017-03-20] MEDS ORDERED: CITALOPRAM HYDROBROMIDE 20 MG TABLET PO SCH (20:00)
[2017-03-20] MEDS ORDERED: ASPIRIN EC 81 MG TABLET.DR PO SCH (20:00)
[2017-03-20] MEDS ORDERED: ENOXAPARIN SODIUM 30 MG/0.3 ML DISP.SYRIN SQ SCH (20:00)
[2017-03-20] MEDS ORDERED: FERROUS SULFATE 325 MG TABLET PO SCH (20:00)
--- NOTE | 2017-03-20 20:02 | History and Physical Report ---
History of Present Illnes - History of Present Illness Reason for Visit: pedal edema, SOB History of Present Illness: 71-year-old white female. A history of congestive heart failure COPD. Patient has recently had increased salt intake. Patient increase pedal edema an increase of breath dyspnea. Patient data the pulse ox for has been running an 87 % minimum assertion. Patient does have a productive pop up some clear plan. Patient denies any chest pain chest pressure TIA or CVA symptom. Patient subsequently increased to Lasix does from 40 mg Q day to 60 mg Q day. Patient continued to have some pedal edema increasing orthotic symptoms and dyspnea. Patient was seen in the emergency room and was felt to have some objective heart failure. Patient had an elevated BNP. Patient was admitted to the hospital for further care and evaluation. - Past Medical History Cardiac: HTN Pulmonary: COPD Heme/Onc: Other (breast cancer) ENT: Other (macular degeneration, legally blind) Endocrine: Hypothyroidism - Past Surgical History Past Surgical History: Appendectomy, Cataract Removal, Other (simple mastectomy , removal of extra epiglottal flap) - Past Social History Smoke: Quit Alcohol: None Drugs: None Lives: With Family - Health Maintenance Health Maintenance: denies: Cholesterol, Tetanus, Influenza Vaccine Influenza Vaccine: No Pneumonia Vaccine: No Resuscitation Status: Resusciation Status Resuscitation Status Full Code,Do Not Resuscitate - Unable to Obtain History Unable to Obtain: No Review of Systems - Review of Systems Constitutional: Weakness. negative: Fever, Chills, Sweats Eyes: negative: pain, vision change ENT: negative: Ear Pain, Ear Discharge, Nose Pain, Nose Discharge, Nose Congestion, Mouth Pain, Mouth Swelling Respiratory: Cough, Shortness of Breath, SOB with Excertion. negative: Dry, Pleuritic Pain, Wheezing Cardiovascular: negative: Chest Pain, Palpitations, Orthopnea, Paroxysmal Noc. Dyspnea Gastrointestinal: Abdominal Pain, Constipation. negative: Nausea, Vomiting, Diarrhea, Melena, Hematochezia Genitourinary: negative: Dysuria, Frequency Musculoskeletal: Back Pain. negative: Neck Pain Skin: negative: Rash Neurological: Weakness. negative: Numbness, Incoordination, Change in Speech, Confusion - Medications/Allergies Allergies/Adverse Reactions: Allergies Allergy/AdvReac Type Severity Reaction Status Date / Time Penicillins Allergy Verified 03/20/17 17:04 diphenhydramine HCl AdvReac Weakness Verified 03/20/17 17:04 [From [facility]] Current Inpatient Medications: Current Inpatient Medications Albuterol (Ventolin Hfa) 2 puff IH PRN PRN PRN Reason: Bronchodialation Arformoterol Tartrate (Brovana) 15 mcg IH BID [facility] Aspirin (Ecotrin) 81 mg PO QD [facility] Budesonide (Pulmicort) 0.5 mg NEB BID [facility] Citalopram Hydrobromide (Celexa) 40 mg PO QD [facility] Enoxaparin Sodium (Lovenox) 30 mg SQ QD [facility] Stop: 04/02/17 20:01 Ferrous Sulfate (Feosol) 325 mg PO 1100 [facility] Furosemide (Lasix) 40 mg IVP Q12 [facility] Gabapentin (Neurontin) 600 mg PO TID [facility] Levothyroxine Sodium (Synthroid) 100 mcg PO 0700 [facility] Levothyroxine Sodium (Synthroid) 25 mcg PO 0700 [facility] Oxycodone HCl (Oxycontin) 10 mg PO Q12 [facility] Pantoprazole Sodium (Protonix) 40 mg PO 0700 [facility] Sodium Chloride (Normal Saline Flush) 3 ml IV BID [facility] Exam - Exam General: Alert, Oriented to Person, Oriented to Place, Oriented to Time, Cooperative, Mild distress HEENT: Atraumatic, PERRLA, Mouth Mucous membr. moist/[place], Hearing Grossly Normal Neck: Normal Range of Motion. No: Stridor, Rigidity, Lymphadenopathy Carotids: WNL Thyroid: WNL Lungs: Normal air movement, Speaks full Sentences, Rales (in bases). No: Wheezes, Rhonchi, Stridor, Prolonged Expiration Cardiovascular: Regular rate, Normal S1, Normal S2, No murmurs Abdomen: Normal bowel sounds, Soft, No tenderness, No hepatospenomegaly, No masses, Other (morbid obesity) Genitourinary: Other (herman cath in place) Integumentary: Normal, [place], Warm, Dry Extremities: No clubbing, Other (4 plus edema) Neurological: Normal speech, Strength Equal Bilat, Normal tone, Sensation intact , Cranial nerves 3-12 NL. No: Normal gait Psych/Mental Status: Mental status NL, Mood NL, Appropriate Affect, Intact Judgment Assessment/Plan - Assessment/Plan (1) CHF (congestive heart failure) Status: Acute Current Visit: Yes Qualifiers: Congestive heart failure type: unspecified congestive heart failure type Congestive heart failure chronicity: unspecified congestive heart failure chronicity Qualified Code(s): I50.9 - Heart failure, unspecified (2) Anemia, iron deficiency Status: Chronic Current Visit: Yes Qualifiers: Iron deficiency anemia type: unspecified iron deficiency Qualified Code(s) : D50.9 - Iron deficiency anemia, unspecified (3) Hypothyroidism Status: Chronic Current Visit: Yes Qualifiers: Hypothyroidism type: unspecified Qualified Code(s): E03.9 - Hypothyroidism , unspecified Assessment: continue home med (4) COPD exacerbation Status: Chronic Current Visit: No Assessment: will continue with home meds VTE Assessment - RISK FACTOR SCORE VTE RISK FACTOR SCORES: AGE OVER 60 YEARS, ANTICIPATED BED CONFINEMENT OR IMMOBILIZATION > 24 HOURS, CONGESTIVE HEART FAILURE OR MYOCARDIAL INFARCTION - RISK VTE HIGH RISK: SCORE OF 3-4 (RISK PROXIMAL DVT 4-8%) PROPHYLAXIS NEEDED
[2017-03-20 20:47] VITALS: BMI 50.7
[2017-03-20] MEDS ORDERED: FERROUS SULFATE 325 MG TABLET PO ONE (20:50)
[2017-03-20] MEDS ORDERED: SALINE FLUSH 10 ML DISP.SYRIN IVF ONE ×2 (20:50→20:57)
[2017-03-20] MEDS ORDERED: BUDESONIDE 0.5MG/2ML AMPUL.NEB NEB ONE (20:50)
[2017-03-20] MEDS ORDERED: ENOXAPARIN SODIUM 30 MG/0.3 ML DISP.SYRIN SQ ONE (20:50)
[2017-03-20] MEDS ORDERED: ASPIRIN EC 81 MG TABLET.DR ONE (20:51)
[2017-03-20] MEDS ORDERED: oxyCODONE HCL 10 MG TAB.ER.12H PO ONE (20:51)
[2017-03-20] MEDS ORDERED: CITALOPRAM HYDROBROMIDE 20 MG TABLET ONE (20:51)
[2017-03-20] MEDS ORDERED: FUROSEMIDE 40 MG/4 ML VIAL ONE (20:57)
[2017-03-20] MEDS: oxyCODONE HCL 10 MG TAB.ER.12H PO SCH (21:03)
[2017-03-20] MEDS: SALINE FLUSH 10 ML DISP.SYRIN IV SCH (21:03)
[2017-03-20] MEDS: FUROSEMIDE 40 MG/4 ML VIAL IVP SCH ×2 (21:06→21:18)
[2017-03-20] MEDS ORDERED: NYSTATIN POWDER BOTTLE TP ONE (21:07)
[2017-03-20] MEDS ORDERED: ACETAMINOPHEN 500 MG TABLET PO PRN (21:08)
[2017-03-20] MEDS: LEVOTHYROXINE SODIUM 25 MCG TABLET PO SCH (21:18)
[2017-03-20] MEDS: PANTOPRAZOLE SODIUM 40 MG TABLET PO SCH (21:18)
[2017-03-20] MEDS: LEVOTHYROXINE SODIUM 100 MCG TABLET PO SCH (21:18)
[2017-03-20] MEDS: NYSTATIN POWDER BOTTLE TP SCH (21:19)
[2017-03-20] MEDS ORDERED: NYSTATIN CREAM 100,000 UNIT/GM 15GM TP SCH (22:00)
[2017-03-20] MEDS: BUDESONIDE 0.5MG/2ML AMPUL.NEB NEB SCH ×2 (22:17→22:19)
[2017-03-20] MEDS: ARFORMOTEROL TARTRATE 15 MCG/2 ML AMPUL.NEB IH SCH (22:19)
[2017-03-21] MEDS ORDERED: LEVOTHYROXINE SODIUM 25 MCG TABLET ONE (04:58)
[2017-03-21] MEDS ORDERED: FERROUS SULFATE 325 MG TABLET PO ONE (04:58)
[2017-03-21] MEDS ORDERED: FUROSEMIDE 40 MG/4 ML VIAL ONE (04:58)
[2017-03-21] MEDS ORDERED: PANTOPRAZOLE SODIUM 40 MG TABLET ONE (04:58)
[2017-03-21] MEDS ORDERED: SALINE FLUSH 10 ML DISP.SYRIN IVF ONE (04:58)
[2017-03-21] MEDS ORDERED: GABAPENTIN 300 MG CAPSULE ONE (04:59)
[2017-03-21] MEDS ORDERED: LEVOTHYROXINE SODIUM 100 MCG TABLET PO ONE (04:59)
[2017-03-21] MEDS: LEVOTHYROXINE SODIUM 25 MCG TABLET PO SCH (06:11)
[2017-03-21] MEDS: LEVOTHYROXINE SODIUM 100 MCG TABLET PO SCH (06:11)
[2017-03-21] MEDS: PANTOPRAZOLE SODIUM 40 MG TABLET PO SCH (06:11)
[2017-03-21 07:01] LABS: eGFR (African) > 60; eGFR (Non-African) > 60
[2017-03-21] MEDS ORDERED: GABAPENTIN 300 MG CAPSULE PO SCH (09:00)
[2017-03-21] MEDS: ARFORMOTEROL TARTRATE 15 MCG/2 ML AMPUL.NEB IH SCH (10:56)
[2017-03-21] MEDS: SALINE FLUSH 10 ML DISP.SYRIN IV SCH (10:56)
[2017-03-21] MEDS: FUROSEMIDE 40 MG/4 ML VIAL IVP SCH (10:56)
[2017-03-21] MEDS: BUDESONIDE 0.5MG/2ML AMPUL.NEB NEB SCH (10:57)
[2017-03-21] MEDS: oxyCODONE HCL 10 MG TAB.ER.12H PO SCH (10:57)
[2017-03-21] MEDS: NYSTATIN POWDER BOTTLE TP SCH (10:59)
[2017-03-21 13:06] VITALS: BP 144/75
--- NOTE | 2017-04-14 18:35 | Discharge Summary ---
Discharge Summary - Discharge Sumary History of Present Illness: 71-year-old white female. A history of congestive heart failure COPD. Patient has recently had increased salt intake. Patient increase pedal edema an increase of breath dyspnea. Patient data the pulse ox for has been running an 87 % minimum assertion. Patient does have a productive pop up some clear plan. Patient denies any chest pain chest pressure TIA or CVA symptom. Patient subsequently increased to Lasix does from 40 mg Q day to 60 mg Q day. Patient continued to have some pedal edema increasing orthotic symptoms and dyspnea. Patient was seen in the emergency room and was felt to have some congestive heart failure. Patient had an elevated BNP. Patient was admitted to the hospital for further care and evaluation. Home Medications: Ambulatory Orders Medication Instructions Recorded Aspirin EC [Ecotrin] 81 mg PO QD 09/18/13 Gabapentin [Neurontin] 600 mg PO TID 08/26/16 Furosemide [Lasix] 40 mg PO DAILY #0 03/21/17 Allergies/Adverse Reactions: Allergies Allergy/AdvReac Type Severity Reaction Status Date / Time Penicillins Allergy Verified 03/20/17 17:04 diphenhydramine HCl AdvReac Weakness Verified 03/20/17 17:04 [From Benadryl]
--- NOTE | 2017-04-14 18:37 | Discharge Summary ---
Discharge Summary - Discharge Sumary Condition at Discharge: Stable Home Medications: Ambulatory Orders Medication Instructions Recorded Aspirin EC [Ecotrin] 81 mg PO QD 09/18/13 Gabapentin [Neurontin] 600 mg PO TID 08/26/16 Furosemide [Lasix] 40 mg PO DAILY #0 03/21/17 Consultations this Visit: None Procedures this Visit: None Allergies/Adverse Reactions: Allergies Allergy/AdvReac Type Severity Reaction Status Date / Time Penicillins Allergy Verified 03/20/17 17:04 diphenhydramine HCl AdvReac Weakness Verified 03/20/17 17:04 [From Benadryl] Discharge Summary: Patient's BNP ws 1058. Patient was admitted to the hospital started on Lasix 40 mg IV BID. Patient had good diuresis. With the diuresis patient's dyspnea and shortness of breath symptoms improved. Patient denied any chest pain. Troponin levels were within normal limits. EKG was normal. Patient was noted to be anemic with a hemoglobin of 10.9. Chest xray showed left effusion vs consildation. With improvement of the patient's respiratory status she wanted to be discharged home and at further workup on an outpatient basis. Patient was subsequently transferred in stable condition. Home medications were adjusted.Patient was advised to follow chest x-ray done an approximately one month. - Final Diagnosis (1) CHF (congestive heart failure) Problems: improved (2) Anemia, iron deficiency Problems: stable (3) Hypothyroidism Problems: stable (4) COPD exacerbation Problems: stable
== END 2017-03-21 11:40 | disposition home or self-care (01) | DRG 293 ==
LOC: ED 16:52 → SOUTH 19:32
PROVIDERS: ADMIT Family Medicine; ATTEND Family Medicine
DX: I50.9 Heart failure, unspecified (principal); D50.9 Iron deficiency anemia, unspecified; E03.9 Hypothyroidism, unspecified; J44.9 Chronic obstructive pulmonary disease, unspecified
CPT/HCPCS: 36415; 71010; 80048; 80053; 81002; 83880; 84484; 85025; J1650; J1940; J7626; 99223; 99238; 99284; S1016

== ENCOUNTER 2017-04-15 10:08 | Outpatient (CLI) | payer MEDICARE, OTHER ==
[2017-04-15 10:47] LABS: eGFR (African) > 60; eGFR (Non-African) > 60
== END 2017-04-15 10:10 ==
LOC: LAB 10:08
PROVIDERS: ATTEND Family Medicine
DX: I10 Essential (primary) hypertension (principal); R53.82 Chronic fatigue, unspecified
CPT/HCPCS: 36415; 80048; 84439; 84443; 84481

== ENCOUNTER 2017-04-15 12:55 | Emergency (ER) | payer MEDICARE, OTHER ==
--- NOTE | 2017-04-15 13:12 | ED Physician Documentation ---
Fall - HISTORIAN Historian: patient, child - [facility] Chief Complaint: Fall Additional Information: pt has chronic rt hip and back pain Onset: just prior to arrival Where: home Context: lost balance r: moderate Associated Symptoms:: no loss of consciousness Location of Pain/Injury: lower extremity, hip, other (rt hip and ankle) Injury to Left Extremity: none - ROS CONST: other (recent increase confusion w/increase of gabapentin) NEURO: dizziness CVS/RESP: none GI/: other (wears herman - incontinence) - PAST HX Past History: diabetes Type 2, other (chronic pain incl rt hip bone on bone dm chf copd) Allergies/Adverse Reactions: Allergies Allergy/AdvReac Type Severity Reaction Status Date / Time Penicillins Allergy Verified 04/15/17 13:02 diphenhydramine HCl AdvReac Weakness Verified 04/15/17 13:02 [From Benadryl] Home Medications: Ambulatory Orders Medication Instructions Recorded Aspirin EC [Ecotrin] 81 mg PO QD 09/18/13 - SOCIAL HX Smoking History: non-smoker Alcohol Use: none Drug Use: none - FAMILY HX Family History: no significant history - VITAL SIGNS Vital Signs: Vital Signs Temp Pulse Resp BP Pulse Ox 144/75 03/21/17 08:13 - REVIEWED ASSESSMENTS Nursing Assessment Reviewed: Yes Vitals Reviewed: Yes ED Results Lab/Radiology - Radiology Radiology Impressions: no fx ankle poss fx sub capital rt hip adv djd both - Orders Orders: ED Orders Category Date Time Status ANKLE 3 VIEWS OR MORE [RAD] Stat Exams 04/15/17 Ordered RT HIP 2VIEW COMPLETE [RAD] Stat Exams 04/15/17 Ordered Fall Physical Exam - Physical Exam General Appearance: mild distress, moderate distress Head: non-tender, no swelling, no obvious injury Neck: non-tender, painless ROM Eye: SUNNY ENT: nml external inspection Resp/CVS: chest non-tender, no ecchymosis, breath sounds nml, no resp. distress , heart sounds nml Abdomen: soft, non-tender Neuro: oriented x3, sensation nml, motor nml, mood/affect nml Skin: color nml, no rash. No: cyanosis, diaphoresis, pallor, ecchymosis Extremities: pelvis stable, unable to bear weight Joint: No: joints nml, nml ROM, Nml gait/weight bearing - Kesha Coma Score Eyes Open: Spontaneous Speech: Oriented Motor: Obeys Commands Discharge Clincal Impression: fall w/trauma rt hip/ankle, severe djd pelvis hips ankles, hyperglycemia Referrals: Leighton Macdonald MD [Primary Care Provider] - 2 Days Comments: family are taking her home adequate care provided by family including nurses as daughters Condition: Good Disposition: 01 HOME, SELF-CARE Decision to Admit: NO Decision Time: 15:31
[2017-04-15 15:47] VITALS: BP 128/76
--- NOTE | 2017-04-15 21:23 | Diagnostic Imaging Report ---
VELMA DYER [facility] [place] [facility] [address] [facility] [place], [place]. [address] Report Submission Date: Apr 15, 2017 3:18:40 PM CDT Patient Study Name: QIANA MELARA Date: Apr 15, 2017 2:55:30 PM CDT Modality Type: CT\SR Gender: F Description: CT PELVIS W/O CONTRAST : 41 Institution: [facility] [place] [facility] Physician: VELMA DYER Examination: CT pelvis. History: Fall Comparison exams: Plain film dated 15 April 2017 Technique: Axial imaging with coronal and sagittal reconstruction. Findings: Advanced right hip degenerative changes with narrowing of the articulation. Significant dystrophic calcifications. Significant acetabular spurring and remodeling of the acetabular groove. No evidence for fracture line involving the femoral head or neck. Intertrochanteric region without evidence for fracture line. No dislocation. Degenerative changes of the pubic symphysis, lumbar spine, and sacroiliac joints. Superior and inferior pubic rami without disruption bilaterally. Iliac wings appear to be intact. Visualized intra- pelvic structures without evidence for gross abnormality. Streak artifact from spinal stimulator. Impression: Advanced right hip degenerative changes. No evidence for fracture. Electronically signed on Apr 15, 2017 3:18:40 PM CDT by: Ramo YEPEZ
--- NOTE | 2017-04-15 21:25 | Diagnostic Imaging Report ---
VELMA DYER [facility] [address] [facility] [address] [address] Report Submission Date: Apr 15, 2017 2:12:10 PM CDT Patient Study Name: QIANA MELARA Date: Apr 15, 2017 1:26:34 PM CDT Modality Type: CR Gender: F Description: PELVIS : 41 Institution: [facility] Physician: VELMA DYER Examination: Plain film hip History: Hip discomfort. Fall Comparison exams: None provided Findings: 2 views of the hip demonstrates significant joint space narrowing with subchondral cyst formation. Superior acetabular spurring. No evidence for overt fracture line or hip dislocation. Likely old fracture involving the inferior for inferior pubic rami. No soft tissue abnormality. Impression: Advanced degenerative changes. Degree of degenerative changes somewhat limits visualization of the cortical margins. While there is no overt displaced fracture line, a subtle fracture line may not be visualized. If still suspect fracture, consider obtaining CT hip to further evaluate. Electronically signed on Apr 15, 2017 2:12:10 PM CDT by: Ramo YEPEZ
--- NOTE | 2017-04-15 21:25 | Diagnostic Imaging Report ---
VELMA DYER [facility] [address] [address] Report Submission Date: Apr 15, 2017 2:08:14 PM CDT Patient Study Name: QIANA MELARA Date: Apr 15, 2017 1:34:47 PM CDT Modality Type: CR Gender: F Description: LOWER EXTREMITY : 41 Institution: [facility] Physician: VELMA DYER Examination: Plain film ankle History: Ankle discomfort. Findings: 3 views of the ankle demonstrates normal cortical margins. Generalized osteopenia. No fracture or dislocation. Talar dome is intact. Generalized soft tissue fullness. No joint effusion. Calcaneal spurs. Impression: Osteopenia and degenerative changes. No overt fracture. Electronically signed on Apr 15, 2017 2:08:14 PM CDT by: Ramo YEPEZ
== END 2017-04-15 15:30 | disposition home or self-care (01) ==
LOC: ED 12:55
DX: S79.911A Unspecified injury of right hip, initial encounter (principal); S99.911A Unspecified injury of right ankle, initial encounter; W19.XXXA Unspecified fall, initial encounter; Y93.9 Activity, unspecified; Y99.9 Unspecified external cause status; M19.079 Primary osteoarthritis, unspecified ankle and foot; M16.10 Unilateral primary osteoarthritis, unspecified hip; R73.9 Hyperglycemia, unspecified
CPT/HCPCS: 72192; 73502; 73610; 99283

== ENCOUNTER 2017-06-16 16:13 | Outpatient (CLI) | payer MEDICARE, OTHER | END 2017-06-16 16:20 | LOC: LAB 16:13 | PROVIDERS: ATTEND Family Medicine | DX: N39.0 Urinary tract infection, site not specified (principal) | CPT/HCPCS: 87086; 87186 ==

== ENCOUNTER 2017-06-18 15:23 | Emergency (ER) | payer MEDICARE, OTHER ==
--- NOTE | 2017-06-18 15:48 | ED Physician Documentation ---
Fall - HISTORIAN Historian: patient, child - HPI Stated Complaint: fall Chief Complaint: Fall Additional Information: family helping pt shower slipped fall w/pain rt hip knee ankle-4 days ago persists unable to ambulate due to pain. Onset: days ago (4) Where: home Context: slipped, lost balance r: moderate Associated Symptoms:: no loss of consciousness Location of Pain/Injury: denies: head, neck, face, chest, upper back, mid back, lower back Injury to Right Extremity: hip, knee, ankle Injury to Left Extremity: none - ROS CONST: no problems NEURO: denies: dizziness, anxiety MS/SKIN/LYMPH: ankle swelling, leg swelling (bilaterally due to chf). denies: neck pain, back pain EYES/ENT: none CVS/RESP: shortness of breath (w/exertion) GI/: denies: problems urinating (wears herman) - PAST HX Past History: cardiac disease, diabetes Type 2, other (htn chf dm ca breast yrs ago-apparent cure) Allergies/Adverse Reactions: Allergies Allergy/AdvReac Type Severity Reaction Status Date / Time Penicillins Allergy Verified 06/18/17 15:45 diphenhydramine HCl AdvReac Weakness Verified 06/18/17 15:45 [From Benadryl] Home Medications: Ambulatory Orders Medication Instructions Recorded Aspirin EC [Ecotrin] 81 mg PO QD 09/18/13 - SOCIAL HX Smoking History: quit greater than 1 year Alcohol Use: none Drug Use: none - FAMILY HX Family History: no significant history - VITAL SIGNS Vital Signs: Vital Signs Temp Pulse Resp BP Pulse Ox 98.1 F 88 18 141/62 97 06/18/17 15:24 06/18/17 15:24 06/18/17 15:24 06/18/17 15:24 06/18/17 15:24 - REVIEWED ASSESSMENTS Nursing Assessment Reviewed: Yes Vitals Reviewed: Yes ED Results Lab/Radiology - Radiology Radiology Impressions: all lxray reviewed -osteoporosis and djd but nop apparent fracture./ chest reveals haziness lt lung liang but radiologists thinks secondary to CHF - Orders Orders: ED Orders Category Date Time Status ANKLE 3 VIEWS OR MORE [RAD] Stat Exams 06/18/17 Ordered CHEST P.A.&LAT 2 VIEWS [RAD] Stat Exams 06/18/17 Ordered KNEE 3 VIEWS [RAD] Stat Exams 06/18/17 Ordered RT HIP 2VIEW COMPLETE [RAD] Stat Exams 06/18/17 Ordered BNP [NT-proBNP] Stat Lab 06/18/17 Ordered UA [URINALYSIS] Routine Lab 06/18/17 Ordered Fall Physical Exam - Physical Exam General Appearance: moderate distress Head: non-tender, no swelling Neck: non-tender, painless ROM ENT: nml external inspection Resp/CVS: chest non-tender, no ecchymosis. No: breath sounds nml (fine ctepitant basal rales) Abdomen: soft, non-tender Neuro: oriented x3, sensation nml, motor nml, mood/affect nml Skin: color nml, no rash. No: cyanosis, diaphoresis, pallor, ecchymosis - [place] Coma Score Eyes Open: Spontaneous Speech: Oriented Motor: Obeys Commands Discharge Clincal Impression: rt hip knee ankle trauma-fall, advanced djd osteoporosis, congestive heart failure Referrals: Leighton Macdonald MD [Primary Care Provider] - 2 Days Comments: home rest continur rehab activity follow up w/pcp Condition: Fair Disposition: 01 HOME, SELF-CARE Decision to Admit: NO Decision Time: 17:55
--- NOTE | 2017-06-18 17:03 | Diagnostic Imaging Report ---
VELMA DYER [facility] [address] [facility] [address] Report Submission Date: Jun 18, 2017 4:57:50 PM POCKET SETTER LOCKSTITCH Patient Study Name: QIANA MELARA Date: Jun 18, 2017 4:01:41 PM POCKET SETTER LOCKSTITCH Modality Type: CR Gender: F Description: LOWER EXTREMITY : 41 Institution: [facility] Physician: VELMA DYER Examination: Plain film knee History: Knee discomfort Findings: 3 views of the knee demonstrates osteopenia. Patellar spurring. Medial joint space narrowing. No fracture. No dislocation. No joint effusion. No soft tissue irregularity. Impression: Osteopenia and degenerative changes. No fracture. Electronically signed on Jun 18, 2017 4:57:50 PM POCKET SETTER LOCKSTITCH by: Ramo YEPEZ
--- NOTE | 2017-06-18 17:04 | Diagnostic Imaging Report ---
VELMA DYER [facility] [address] [facility] [address] [address] Report Submission Date: Jun 18, 2017 4:56:46 PM RUBBER AND PLASTICS WORKER Patient Study Name: QIANA MELARA Date: Jun 18, 2017 4:15:10 PM RUBBER AND PLAST[employer] WORKER Modality Type: CR Gender: F Description: LOWER EXTREMITY : 41 Institution: [facility] Physician: VELMA DYER Examination: Plain film ankle History: Injury Findings: 3 views of the ankle demonstrates osteopenia. No evidence for cortical fracture line. Talar dome is intact. Generalized soft tissue prominence. Posterior calcaneal spur. No joint effusion. Impression: Osteopenia and degenerative changes. No displaced fracture. Electronically signed on Jun 18, 2017 4:56:46 PM RUBBER AND PLASTICS WORKER by: Ramo YEPEZ
--- NOTE | 2017-06-18 17:05 | Diagnostic Imaging Report ---
VELMA DYER [facility] [address] [facility] [address] [address] Report Submission Date: Jun 18, 2017 4:53:27 PM DRYWALL SPRAYER Patient Study Name: QIANA MELARA Date: Jun 18, 2017 4:25:41 PM DRYWALL SPRAYER Modality Type: CR Gender: F Description: CHEST : 41 Institution: [facility] Physician: VELMA DYER Examination: Portable chest History: Chest discomfort Comparison exam: 20 March 2017 Findings: Single view of the chest demonstrates diffuse haziness involving the left lower lung: present on prior study. Generalized interstitial prominence involving the right hemithorax and left upper lung region. Osseous structures are appropriate for age. Impression: Stable chest. Continued parenchymal infiltrates and obscuration of the left lung base. May represent continued congestive failure and correlate clinically. Electronically signed on Jun 18, 2017 4:53:27 PM DRYWALL SPRAYER by: Ramo YEPEZ
--- NOTE | 2017-06-18 17:05 | Diagnostic Imaging Report ---
VELMA DYER [facility] [address] [facility] [address] [address] Report Submission Date: Jun 18, 2017 5:00:44 PM CASHIER GENERAL Patient Study Name: QIANA MELARA Date: Jun 18, 2017 3:56:03 PM CASHIER GENERAL Modality Type: CR Gender: F Description: PELVIS : 41 Institution: [facility] Physician: VELMA DYER Examination: Plain film hip History: Fall Comparison exams: None provided Findings: 2 views of the hip demonstrates osteopenia. Advanced hip articular degenerative changes with subchondral sclerosis and bony reformation. No evidence for fracture line or dislocation. Visualized margins of the superior and inferior pubic rami and iliac wing are without gross abnormality. Impression: Advanced hip articular degenerative changes. No evidence for fracture on views provided. Electronically signed on Jun 18, 2017 5:00:44 PM CASHIER GENERAL by: Ramo YEPEZ
[2017-06-18 18:15] VITALS: BP 136/56
== END 2017-06-18 18:05 | disposition home or self-care (01) ==
LOC: ED 15:23
DX: S79.911A Unspecified injury of right hip, initial encounter (principal); S89.91XA Unspecified injury of right lower leg, initial encounter; S99.911A Unspecified injury of right ankle, initial encounter; W19.XXXA Unspecified fall, initial encounter; Y93.9 Activity, unspecified; Y99.9 Unspecified external cause status
CPT/HCPCS: 36415; 71010; 73502; 73560; 73610; 83880; 99283

== ENCOUNTER 2017-07-08 18:43 | Outpatient (CLI) | payer MEDICARE, OTHER | END 2017-07-08 18:44 | LOC: LAB 18:43 | PROVIDERS: ATTEND Family Medicine | DX: R41.0 Disorientation, unspecified (principal); N39.0 Urinary tract infection, site not specified | CPT/HCPCS: 87086 ==

== ENCOUNTER 2017-07-15 15:05 | Outpatient (CLI) | payer MEDICARE, OTHER ==
[2017-07-15 15:13] LABS: BASOPHILS % 0.6 (0.0-1.5); EOSINOPHILS % 6.6 % (0.0-6.8); MEAN CORPUSCULAR HEMOGLOBIN 31.4 pg (28.0-34.0); MEAN CORPUSCULAR VOLUME 96.3 fl (80.0-100.0); MONOCYTES % 3.9 % (0.0-11.0); NEUTROPHILS # 4.7 # k/uL (1.4-7.7)
[2017-07-15 15:44] LABS: eGFR (African) > 60; eGFR (Non-African) > 60
== END 2017-07-15 15:10 ==
LOC: LAB 15:05
PROVIDERS: ATTEND Family Medicine
DX: E03.9 Hypothyroidism, unspecified (principal); I10 Essential (primary) hypertension; R41.0 Disorientation, unspecified
CPT/HCPCS: 36415; 80053; 84443; 85025

== ENCOUNTER 2017-10-29 10:55 | Outpatient (CLI) | payer MEDICARE, OTHER | END 2017-10-29 10:56 | LOC: LAB 10:55 | PROVIDERS: ATTEND Family Medicine | DX: E03.9 Hypothyroidism, unspecified (principal) | CPT/HCPCS: 36415; 84443 ==

== ENCOUNTER 2018-01-20 15:00 | Outpatient (CLI) | payer MEDICARE, OTHER ==
[2018-01-20 15:35] LABS: APPEARANCE,URINE SLIGHTLY CLOUDY (CLEAR); COLOR,URINE YELLOW (YELLOW); OCCULT BLOOD,URINE 2+ (NEGATIVE); UROBILINOGEN URINE 0.2 Eu (0.2-1.0)
== END 2018-01-20 15:02 ==
LOC: LAB 15:00
PROVIDERS: ATTEND Family Medicine
DX: E03.9 Hypothyroidism, unspecified (principal); R32 Unspecified urinary incontinence
CPT/HCPCS: 36415; 81002; 84443; 87086

== ENCOUNTER 2018-03-29 09:39 | Outpatient (CLI) | payer MEDICARE, OTHER ==
[2018-03-29 16:23] LABS: APPEARANCE,URINE TURBID (CLEAR); COLOR,URINE YELLOW (YELLOW); OCCULT BLOOD,URINE 2+ (NEGATIVE)
[2018-03-29 16:24] LABS: UROBILINOGEN URINE 0.2 Eu (0.2-1.0)
== END 2018-03-29 09:40 ==
LOC: LAB 09:39
PROVIDERS: ATTEND Family Medicine
DX: R32 Unspecified urinary incontinence (principal); R30.0 Dysuria
CPT/HCPCS: 81002; 87086

== ENCOUNTER 2018-06-04 17:51 | Outpatient (CLI) | payer MEDICARE, OTHER ==
[2018-06-04 18:46] LABS: MEAN CORPUSCULAR HEMOGLOBIN 34.5 pg (28.0-34.0)
[2018-06-04 18:47] LABS: BASOPHILS % 1.3 (0.0-1.5); EOSINOPHILS % 2.9 % (0.0-6.8); MONOCYTES % 4.6 % (0.0-11.0)
[2018-06-04 18:48] LABS: NEUTROPHILS # 8.3 # k/uL (1.4-7.7)
[2018-06-04 18:56] LABS: eGFR (Non-African) > 60
== END 2018-06-04 17:53 ==
LOC: LAB 17:51
PROVIDERS: ATTEND Family Medicine
DX: R53.82 Chronic fatigue, unspecified (principal); R30.0 Dysuria; I10 Essential (primary) hypertension; E03.9 Hypothyroidism, unspecified
CPT/HCPCS: 80053; 84443; 85025

== ENCOUNTER 2018-06-07 15:29 | Outpatient (CLI) | payer MEDICARE, OTHER ==
[2018-06-07 15:44] LABS: APPEARANCE,URINE CLOUDY (CLEAR); COLOR,URINE YELLOW (YELLOW); OCCULT BLOOD,URINE 2+ (NEGATIVE); UROBILINOGEN URINE 0.2 Eu (0.2-1.0)
== END 2018-06-07 15:32 ==
LOC: LAB 15:29
PROVIDERS: ATTEND Family Medicine
DX: R30.0 Dysuria (principal)
CPT/HCPCS: 81002

== ENCOUNTER 2018-08-01 16:00 | Outpatient (CLI) | payer MEDICARE, OTHER ==
[2018-08-02 11:37] LABS: COLOR,URINE YELLOW (YELLOW)
[2018-08-02 11:38] LABS: AMORPHOUS SEDIMENT,UR MODERATE (NEGATIVE); APPEARANCE,URINE SLIGHTLY CLOUDY (CLEAR); OCCULT BLOOD,URINE 3+ (NEGATIVE); PH URINE 5.5 (5.0 - 8.0); UROBILINOGEN URINE 0.2 Eu (0.2-1.0)
== END 2018-08-01 16:05 ==
LOC: LAB 16:00
PROVIDERS: ATTEND Family Medicine
DX: N39.0 Urinary tract infection, site not specified (principal); B96.20 Unspecified Escherichia coli [E. coli] as the cause of diseases classified elsewhere; Z16.24 Resistance to multiple antibiotics
CPT/HCPCS: 81002; 87086; 87186

== ENCOUNTER 2018-08-06 19:01 | Outpatient (CLI) | payer MEDICARE, OTHER ==
[2018-08-06 19:30] LABS: eGFR (Non-African) > 60
== END 2018-08-06 19:03 ==
LOC: LAB 19:01
PROVIDERS: ATTEND Nurse Practitioner Family
DX: I10 Essential (primary) hypertension (principal); E03.9 Hypothyroidism, unspecified
CPT/HCPCS: 80053; 80061; 84439; 84443; 84481

== ENCOUNTER 2018-11-22 17:24 | Outpatient (CLI) | payer MEDICARE, OTHER ==
[2018-11-22 18:28] LABS: APPEARANCE,URINE CLOUDY (CLEAR); COLOR,URINE YELLOW (YELLOW); OCCULT BLOOD,URINE 1+ (NEGATIVE); UROBILINOGEN URINE 0.2 Eu (0.2-1.0)
[2018-11-22 18:29] LABS: YEAST,URINE MANY (NEGATIVE)
== END 2018-11-22 17:26 ==
LOC: LAB 17:24
PROVIDERS: ATTEND Nurse Practitioner Family
DX: R41.0 Disorientation, unspecified (principal)
CPT/HCPCS: 81002; 87086

== ENCOUNTER 2019-03-31 09:55 | Outpatient (CLI) | payer MEDICARE, OTHER ==
--- NOTE | 2019-04-01 13:58 | Diagnostic Imaging Report ---
TYSON PRIDE [facility] [address] [facility].[address] [address] Report Submission Date: Mar 31, 2019 10:24:38 AM CDT Patient Study Name: QIANA MELARA Date: Mar 31, 2019 9:57:04 AM CDT Modality Type: DX Gender: F Description: SHOULDER 2 VIEWS OR MORE : 41 Institution: [facility] Physician: TYSON PRIDE Examination: Plain film right shoulder History: PT STATES LOSS OF ROM, PAIN IN RT SHOULDER FOR X1 MONTH Comparison exams: None provided Findings: 3 views of the right shoulder demonstrates osteopenia. Acromioclavicular joint degenerative spurring. No evidence for fracture or dislocation. No soft tissue abnormality Impression: Osteopenia and degenerative changes. No acute appearing cortical abnormality. Electronically signed on Mar 31, 2019 10:24:38 AM CDT by: Ramo YEPEZ
== END 2019-03-31 09:57 ==
LOC: RAD 09:55
PROVIDERS: ATTEND Family Medicine
DX: M85.811 Other specified disorders of bone density and structure, right shoulder (principal); M19.011 Primary osteoarthritis, right shoulder
CPT/HCPCS: 73030

== ENCOUNTER 2019-04-06 17:30 | Outpatient (CLI) | payer MEDICARE, OTHER ==
[2019-04-06 18:32] LABS: APPEARANCE,URINE CLEAR (CLEAR); COLOR,URINE YELLOW (YELLOW); OCCULT BLOOD,URINE 1+ (NEGATIVE)
[2019-04-06 18:33] LABS: PH URINE 6.5 (5.0 - 8.0); UROBILINOGEN URINE 0.2 Eu (0.2-1.0)
== END 2019-04-06 17:33 ==
LOC: LAB 17:30
PROVIDERS: ATTEND Family Medicine
DX: N39.0 Urinary tract infection, site not specified (principal)
CPT/HCPCS: 81002; 87086

== ENCOUNTER 2019-04-11 20:18 | Emergency (ER) | payer MEDICARE, OTHER ==
[2019-04-11] MEDS ORDERED: KETOROLAC TROMETHAMINE 30 MG/1ML VIAL IVP ONE (20:38)
--- NOTE | 2019-04-11 20:39 | ED Physician Documentation ---
Fall - HISTORIAN Historian: patient, other (family) - HPI Chief Complaint: General Adult Onset: today (this afternoon) Injury to Right Extremity: none Injury to Left Extremity: none Further Comments: yes (73 year old female patient arrives via EMS with complaints of back pain and right shoulder pain. Patient had to "sit down" during a shower on Thursday; was assisted up by her caregivers. Was seen by Dr Macdonald on 04/06/19 for right shoulder pain. Family reports increased confusion for the past 24 hours. UA results pending. Family reports patient is anxious about daughter traveling, acting out.) - ROS CONST: no problems NEURO: denies: dizziness, anxiety, depression, other MS/SKIN/LYMPH: back pain, other (shoulder pain). denies: weakness, numbness, neck pain, ankle swelling, leg swelling, rash EYES/ENT: none CVS/RESP: none GI/: denies: problems urinating, nausea, vomiting - PAST HX Past History: diabetes Type 2, other (HTN, OA, herman; chronic UTI, anxiety) Allergies/Adverse Reactions: Allergies Allergy/AdvReac Type Severity Reaction Status Date / Time Penicillins Allergy Verified 04/11/19 20:38 diphenhydramine HCl AdvReac Weakness Verified 04/11/19 20:38 [From Benadryl] Home Medications: Ambulatory Orders Medication Instructions Recorded Aspirin EC [Ecotrin] 81 mg PO QD 09/18/13 Diazepam 5 mg PO PRN 04/11/19 Metformin HCl 500 mg PO BID 04/11/19 Sennosides [Laxative] 25 mg PO DAILY 04/11/19 Sulfamethoxazole/Trimethoprim 1 each PO BID #14 tab 04/11/19 [Bactrim Ds] - SOCIAL HX Smoking History: non-smoker - FAMILY HX Family History: denies: none - VITAL SIGNS Vital Signs: Vital Signs Temp Pulse Resp BP Pulse Ox 136/56 06/18/17 18:12 - REVIEWED ASSESSMENTS Nursing Assessment Reviewed: Yes Vitals Reviewed: Yes Progress - Progress Progress: UA obtained from new herman placement - UA showed 3+ leukocytes with positive nitrates; patient increased confusion the past 24 hours. Will treat UTI. No micro available from 04/06/19 UA. Previous UAs reviewed; patient innoculate with EColi; family reports increased confusion and anxiety with UTIs. Will treat with bactrim. Toradol IM given for shoulder and back pain. Patient took her Oxycontin at 1930. Family at bedside. Report patient is anxious and nervous youngest daughter is traveling to [place]. Fall Physical Exam - Physical Exam General Appearance: mild distress Head: non-tender, no swelling, no obvious injury Neck: non-tender, painless ROM, trachea midline Eye: SUNNY Resp/CVS: chest non-tender, no ecchymosis, breath sounds nml, no resp. distress, heart sounds nml Abdomen: soft, no organomegaly, normal bowel sounds, no abdominal bruit, no distension Neuro: oriented x3, sensation nml, motor nml, mood/affect nml Skin: color nml, no rash, nml palp., dry Back: other (herman with cloudy dark yellow urine) Extremities: atraumatic, pelvis stable, hips non-tender, no pedal edema, nml ROM, nml color/temp, other (patient in non weight bearing; limited ROM with right shoulder) - [place] Coma Score Eyes Open: Spontaneous Speech: Oriented Motor: Obeys Commands Discharge Clincal Impression: Right shoulder pain Qualifiers: Chronicity: acute Qualified Code(s): M25.511 - Pain in right shoulder UTI (urinary tract infection) Qualifiers: Urinary tract infection type: catheter-associated UTI Indwelling urinary catheter type: indwelling urethral catheter Encounter type: initial encounter Qualified Code(s): T83.511A - Infection and inflammatory reaction due to indwelling urethral catheter, initial encounter; N39.0 - Urinary tract infection, site not specified Prescriptions: Sulfamethoxazole/Trimethoprim [Bactrim Ds] 1 each PO BID #14 tab Referrals: Leighton Macdonald MD [Primary Care Provider] - 2 Days Condition: Stable Disposition: 01 HOME, SELF-CARE Decision to Admit: NO Decision Time: 20:40
[2019-04-11] MEDS ORDERED: SULFAMETHOXAZOLE/TRIMETHOPRIM 800/160MG TAB PO ONE (20:42)
[2019-04-11 20:54] VITALS: BP 103/68
== END 2019-04-11 20:57 | disposition home or self-care (01) ==
LOC: ED 20:18
DX: M25.511 Pain in right shoulder (principal); N39.0 Urinary tract infection, site not specified; T83.511A Infection and inflammatory reaction due to indwelling urethral catheter, initial encounter
CPT/HCPCS: 96374; 99283; A9270; J1885

== ENCOUNTER 2019-05-26 17:39 | Outpatient (CLI) | payer MEDICARE, OTHER ==
[2019-05-26 18:14] LABS: A1C 9.4 % (<5.7)
[2019-05-26 18:31] LABS: eGFR (Non-African) 38
[2019-05-26 18:32] LABS: HDL 43 mg/dL (>40)
[2019-05-27 08:35] LABS: BASOPHILS % 2 % (0-2); SEGMENTED NEUTROPHILS % 78 % (39-79)
== END 2019-05-26 17:44 ==
LOC: LAB 17:39
PROVIDERS: ATTEND Nurse Practitioner Family
DX: I11.0 Hypertensive heart disease with heart failure (principal); I50.9 Heart failure, unspecified; J44.9 Chronic obstructive pulmonary disease, unspecified; E03.9 Hypothyroidism, unspecified; E11.9 Type 2 diabetes mellitus without complications
CPT/HCPCS: 36415; 80053; 80061; 83036; 84443; 85025

== ENCOUNTER 2019-06-05 15:49 | Emergency (ER) | payer MEDICARE, OTHER ==
--- NOTE | 2019-06-05 16:05 | ED Physician Documentation ---
General Adult - HISTORIAN Historian: patient - HPI Stated Complaint: sob Chief Complaint: General Adult Onset: days ago (3) Timing: still present Severity: moderate Further Comments: yes (Pt is a 73 yo female with sob. Pt has hx COPD and CHF, as well as DM (oral meds). Pt presents with tacycardia and HR in 140's to 150's and SpO2=87%. Pt has home O2 NC prn. Pt has not had n/v, cp, diaphoresis.) - ROS CONST: weakness EYES/ENT: none CVS/RESP: shortness of breath GI/: none MS/SKIN/LYMPH: none NEURO/PSYCH: other (weakness) - PAST HX Past History: other (DM, CHF, COPD, breast cancer, hypothyroidism, macular degeneration, anemia, anxiety.) Surgeries/Procedures: other (appendectomy, catarac, thyroid surgery, R mastectomy) Allergies/Adverse Reactions: Allergies Allergy/AdvReac Type Severity Reaction Status Date / Time Penicillins Allergy Verified 06/05/19 16:17 diphenhydramine HCl AdvReac Weakness Verified 06/05/19 16:17 [From Benadryl] Home Medications: Ambulatory Orders Medication Instructions Recorded Aspirin EC [Ecotrin] 81 mg PO QD 09/18/13 Diazepam 5 mg PO PRN 04/11/19 Metformin HCl 500 mg PO BID 04/11/19 Sennosides [Laxative] 25 mg PO DAILY 04/11/19 Gabapentin 2 tab PO HS 06/05/19 - SOCIAL HX Smoking History: quit greater than 1 year - FAMILY HX Family History: No - VITAL SIGNS Vital Signs: Vital Signs Temp Pulse Resp BP Pulse Ox 103/68 04/11/19 20:51 - REVIEWED ASSESSMENTS Nursing Assessment Reviewed: Yes Vitals Reviewed: Yes Progress - Progress Progress: Duoneb HFN x 1 little change CXR: Cardiomegaly with mild vascular central congestion. Cardizem 20 mg IV x 1 HR 144 --> 103 NS 150 cc IVF for transient change in BP Pt more comfortable, says breathing is now normal VSS Transfer to [facility], Dr. Roberson. - EKG/XRAY/CT EKG: rhythm (Afib with RVR, YA=049; time 15:58.) - Additional EKG/XRAY/Consults EKG #2: rhythm (Afib, HN=[id number]) General Adult Physical Exam - PHYSICAL EXAM GENERAL APPEARANCE: moderate distress EENT: pharynx normal NECK: normal inspection, supple RESPIRATORY: chest non-tender, breath sounds normal CVS: irregularly irregular rhy, tachycardia ABDOMEN: soft, no organomegaly, normal bowel sounds BACK: normal inspection, no CVA tenderness SKIN: warm/dry, normal color EXTREMITIES: non-tender, normal range of motion, edema NEURO: oriented X3, motor nml, sensation nml Discharge Clincal Impression: Atrial fibrillation with RVR, Hyperglycemia Referrals: Leighton Macdonald MD [Primary Care Provider] - Condition: Stable Disposition: XFER SHT-TRM HOSP Decision to Admit: NO Decision Time: 18:08
[2019-06-05] MEDS ORDERED: IPRATROPIUM/ALBUTEROL SULFATE 3 ML AMPUL.NEB NEB ONE (16:06)
--- NOTE | 2019-06-05 16:25 | Diagnostic Imaging Report ---
PATIENT MR#: [id number] PATIENT PATIENT NAME: QIANA MELARA DATE OF : 1945 REFERRING PHYSICIAN: Jaun Singh EXAM DATE: 06/05/2019 ACCESSION NUMBER: [id number] EXAM DESCRIPTION: CHEST 1VIEW Chest, one view History: Shortness of breath. Findings: Examination is limited by patient's large body habitus. The heart is enlarged. There is mild central vascular prominence present. Mild left basilar atelectasis present. No pleural effusion or pneumoth orax present. Impression: 1. Cardiomegaly with mild vascular central congestion. Read by: Dr. Chris Hurtado Transcribed by: Transcribed Date: Electronically signed by: Dr. Chris Hurtado Date signed: 06/05/2019 4:25:05 PM
[2019-06-05] MEDS ORDERED: dilTIAZem HCL 25 MG/5 ML VIAL IVP ONE (16:31)
[2019-06-05] MEDS ORDERED: 0.9 % SODIUM CHLORIDE 500 ML IV ONE (16:31)
[2019-06-05 16:35] LABS: eGFR (Non-African) > 60
[2019-06-05 18:36] VITALS: BP 119/81
[2019-06-06 07:27] LABS: BASOPHILS % 0.6 % (0.0-1.5); NEUTROPHILS # 11.6 # k/uL (1.4-7.7); SEGMENTED NEUTROPHILS % 79 % (39-79)
[2019-06-06 07:28] LABS: STOMATOCYTES 1+ (NEGATIVE)
== END 2019-06-05 18:33 | disposition short-term general hospital (02) ==
LOC: ED 15:49
DX: I48.91 Unspecified atrial fibrillation (principal); E11.65 Type 2 diabetes mellitus with hyperglycemia
CPT/HCPCS: 71045; 80053; 83880; 84484; 85025; 93005; 94640; 96374; 99284; J3490; J7060; S1016